=== PATIENT | male | born 1955 | race African-American/Black ===

== ENCOUNTER 2018-02-11 09:13 | Outpatient (CLI) | payer MEDICARE | END 2018-02-11 09:14 | disposition home or self-care (01) | LOC: BICULT 09:13 | PROVIDERS: ATTEND Internal Medicine Medical Oncology | DX: R16.1 Splenomegaly, not elsewhere classified (principal); D69.6 Thrombocytopenia, unspecified | CPT/HCPCS: 76700 ==

== ENCOUNTER 2018-10-23 10:32 | Inpatient (IN) | payer MEDICARE ==
[2018-10-23 13:36] VITALS: BMI 31.7
--- NOTE | 2018-10-23 13:57 | HP ---
PRIMARY CARE PHYSICIAN: Dr. Berg. REASON FOR ADMISSION: Transferred from [facility] for left-sided facial, body pain as well as left-sided eye redness. HISTORY OF PRESENT ILLNESS: A 63-year-old male, who has underlying history of diabetes, who went to [facility] earlier today with complaint of left-sided facial pain, left-sided headache as well as left-sided body pain. He describes pain in his left side of face, upper part around periorbital region, throbbing in nature, associated with blurred vision as well as conjunctivitis on the left side. He also had some nonspecific rash around the left periorbital region. He was also complaining of pain radiating to entire left side of body. He denies any motor weakness. He denies any sensory changes in upper or lower extremity, but he was having mainly pain. He denies any associated nausea, vomiting. Family member also noticed that he was having slurred speech and vision changes. The patient reports that with movement of the eye, he gets more pain. He denies any trauma. He denies any contact lens. He denies any purulent drainage from the eye. He denies any sick exposure. He denies any UTI symptoms. He denies any constipation, diarrhea, melena, or hematochezia. The patient had CT brain at [facility], which was unremarkable and he had his chest x-ray, which was unremarkable. Routine blood test showed uncontrolled diabetes. The patient was transferred to our hospital for further evaluation and treatment. REVIEW OF SYSTEMS: CONSTITUTIONAL: Negative for weight loss or gain, ability to conduct usual activities. SKIN: Negative for rash, itching. EYES: Negative for double vision, pain. ENT/MOUTH: Negative for nose bleeding, neck stiffness, pain, tenderness. CARDIOVASCULAR: Negative for palpitations, dyspnea on exertion, orthopnea. RESPIRATORY: Negative for shortness of breath, wheezing, cough, hemoptysis, fever or night sweats. GASTROINTESTINAL: Negative for poor appetite, abdominal pain, heartburn, nausea, vomiting, constipation, or diarrhea. GENITOURINARY: Negative for urgency, frequency, dysuria, nocturia. MUSCULOSKELETAL: Negative for pain, swelling. NEUROLOGIC/PSYCHIATRIC: Negative for anxiety, depression. ALLERGY/IMMUNOLOGIC: Negative for skin rash, bleeding tendency. Please see my HPI for pertinent positives and negatives. All other review of systems reviewed and negative except as mentioned in HPI. PAST MEDICAL HISTORY: Hypertension, dyslipidemia, insulin-dependent diabetes mellitus. PAST SURGICAL HISTORY: Reviewed and negative. PAST PSYCHIATRIC HISTORY: Reviewed and negative. SOCIAL HISTORY: The patient is , lives at home with family. No history of tobacco, alcohol, or illicit drug abuse. FAMILY HISTORY: Positive for diabetes among several family members. ALLERGIES: LATEX, BUT NO KNOWN DRUG ALLERGY. CURRENT HOME MEDICATION: 1. Levemir 45 units subcu twice daily. 2. NovoLog insulin 15 units three times daily. EMERGENCY ROOM COURSE: The patient was given aspirin, Reglan, Benadryl, and potassium chloride. PHYSICAL EXAMINATION: VITAL SIGNS: On arrival, blood pressure 158/86, pulse 78, respiratory rate 18, temperature 98.7, saturation 98% on room air. Weight 83.9 kg. GENERAL: The patient is currently alert, awake, follows commands. No obvious acute distress other than complaining of headache and hypertensive. HEENT: Eyes, left conjunctiva injected with left sclera injected. At corneoscleral junction, the patient has white appearing colonies. The patient has tenderness. ENT, oropharynx appears within normal limits. Moist mucous membranes. No oral lesion. No pharyngeal erythema. No exudate. NECK: Supple. No JVD. No thyromegaly. No carotid bruit. No jugular venous distention. LUNGS: Clear to auscultation without any rhonchi or rales. CARDIAC: S1, S2 regular. Soft systolic murmur present at parasternum. No gallop. No rub. ABDOMEN: Soft. Bowel sounds present. Obesity present. No peritoneal sign. No guarding. No rigidity. No rebound. BACK: Unremarkable. No CVA tenderness. EXTREMITIES: Upper extremities, passive movement of all joints are normal. Lower extremities, passive movement of all joints are normal. SKIN: No skin rash. HEMATOLOGICAL: No lymphadenopathy. NEUROLOGIC: Currently, the patient's speech is normal. Cranial nerve, otherwise unremarkable. Motor and sensation within normal limits. Plantar bilateral flexor. Reflexes symmetrical. SIGNIFICANT LABORATORY DATA: EKG showing LVH. CT head based on my review, no acute intracranial process. Chest x-ray based on my review, no acute cardiopulmonary process. CBC; WBC 6.3, hemoglobin 12.1, platelets 68. BMP; sodium 136, potassium 2.9, chloride 94, carbon dioxide 33, BUN 25, creatinine 1.73, glucose 349, calcium 9.5. LFT; AST 24, ALT 15, alkaline phosphatase 75, albumin 3.1, CK-MB 1.2, troponin 0.032. ASSESSMENT AND PLAN: Impression: 1. Right eye conjunctivitis with keratitis. Differential diagnosis is herpes keratitis, needs to be excluded. I will consult Ophthalmology to look at this patient's eye on the left side. He has sclera disease as well as corneal ulceration, which was suspected. After all Ophthalmology evaluation, we will consider specific treatment. The patient also has conjunctival suffusion, so leptospirosis needs to be excluded. I will consult Dr. Batres for his opinion. The patient also has periorbital edema as well as uncontrolled diabetes, so Mucorales is also suspected and that is why we will obtain opinion from Dr. Batres and after that we will start specific therapy if needed. I will obtain MRI brain with orbital and sinus protocol. 2. Hypokalemia. We will check magnesium, phosphorus, and the patient is given potassium chloride at other emergency room. We will give him another potassium chloride 40 mEq p.o. one time dose. 3. Elevated troponin. We will do serial cardiac enzyme x3 to rule out acute coronary syndrome. Likely this is due to type [address] elevation myocardial infarction. 4. Chronic kidney disease, likely due to diabetic nephropathy. The patient has associated hypoalbuminemia. We will check urinalysis. 5. Thrombocytopenia, unclear etiology. We will repeat CBC. 6. Diabetes type 2, uncontrolled. We will start insulin as per home dosage and cover with aggressive sliding scale insulin. Diabetic diet will be given. 7. DVT prophylaxis, SCD boots. No Lovenox because of low platelet count. 8. Gastrointestinal prophylaxis, Pepcid 20 mg p.o. b.i.d. CODE STATUS: The patient is full code. DISPOSITION PLAN: Based on clinical course, we are expecting the patient's stay in hospital more than 2 midnights. Plan of care discussed with the patient in detail. If needed, we will change to inpatient status as well. Job ID: [id number]
[2018-10-23] MEDS ORDERED: Sodium Chloride 0.65% Nasal 44 ML BOT EA NARE PRN (14:19)
[2018-10-23] MEDS ORDERED: Loperamide HCl 2 MG CAP PO PRN (14:19)
[2018-10-23] MEDS ORDERED: Artificial Tears 18 DROP/0.9 ML EA EYE PRN (14:19)
[2018-10-23] MEDS ORDERED: Dextrose 5% in Water 1,000 ML IV PRN (14:19)
[2018-10-23] MEDS ORDERED: Ondansetron ODT 4 MG TAB PO PRN (14:19)
[2018-10-23] MEDS ORDERED: Cepastat Lozenges 1 LOZ PO PRN (14:19)
[2018-10-23] MEDS ORDERED: Calcium Carbonate 500 MG ChewTAB PO PRN (14:19)
[2018-10-23] MEDS ORDERED: Dextrose 50% Abboject 50 ML SYRINGE SLOW IVP PRN (14:19)
[2018-10-23] MEDS ORDERED: Ondansetron PF 4 MG/2 ML Vial IVP PRN (14:19)
[2018-10-23] MEDS ORDERED: Bisacodyl 10 MG SUPP PR PRN (14:19)
[2018-10-23] MEDS ORDERED: Zolpidem Tartrate 5 MG TAB PO PRN (14:19)
[2018-10-23] MEDS ORDERED: Eucerin (Mineral Oil/Petrolatum,White) 30 gm Jar TOP PRN (14:19)
[2018-10-23] MEDS ORDERED: Diabetic Tussin 200 MG/10 ML UDCUP PO PRN (14:19)
[2018-10-23] MEDS ORDERED: Loratadine 10 MG TAB PO PRN (14:19)
[2018-10-23 14:27] LABS: Troponin I 0.017 ng/mL (< 0.028)
--- NOTE | 2018-10-23 15:52 | MRI ---
EXAM: MRI Brain W WO Con PROVIDED CLINICAL HISTORY: Left orbit pain and headache COMPARISON: None FINDINGS: The ventricular system appears normal in size and morphology. There is no evidence for intracranial h emorrhage or mass effect. There is no restricted diffusion to suggest recent infarction. There are multifocal patchy foci of FLAIR and T2 hyperintensity involving the cerebral white matter a nd reyna, statistically reflecting chronic microvascular ischemic change. There is nonmasslike T2 hyperintensity within the cerebral peduncles bilaterally, without corresponding contrast enhancement. No additional significant intracranial signal abnormality is evident. The orbits and visualized paranasal sinuses demonstrate a normal MR appearance. Appropriate flow void s are seen within the major intracranial vessels. Regional marrow signal appears normal. IMPRESSION: 1. No orbital or sinus abnormality to explain the patient's left eye pain. 2. Symmetric T2 hyperintensity within the cerebellar peduncles. Differential diagnosis is broad, and includes neurodegenerative processes, inflammatory processes such as PML and other cerebritis, myelinolyses cyst related to electrolyte dysfunction or nonspecific toxic exposures.
[2018-10-23] MEDS: HYDROcodone/Acetaminophen 5/325 mg Tablet PO PRN ×2 (16:05→20:17)
[2018-10-23] MEDS: HumaLOG 300 UNITS/3 ML VIAL SC PRN (17:03)
[2018-10-23] MEDS: hydrALAZINE 20 MG/ML VIAL SLOW IVP PRN (17:12)
[2018-10-23 17:24] LABS: Bilirubin Negative (Negative); Blood, Urine Moderate (Negative); Clarity CLEAR (Clear); Glucose, Urine (Dipstick) 250 mg/dL (Negative); Leukocyte Negative (Negative); Nitrite Negative (Negative); Protein, Urine (Dipstick) 100 mg/dL (Neg-Trace); Specific Gravity, Urine 1.018 (1.002-1.036); pH, Urine 6.5 (5.0-9.0)
[2018-10-23 17:26] LABS: Bacteria/HPF None Seen HPF (None Seen); Hyaline Casts/LPF 0-3 HYALINE CAST LPF (0-3 Hyaline); Pathc Cast-AUWi Flag 0.27 (0-2.49); Squamous Epithelial 0-3 HPF (0-3); WBC/HPF 0-3 HPF (0-3)
[2018-10-23 18:47] LABS: HIV (1/2) Antibody/Antigen Non-Reactive (NonReactive); HIV 1/2 INDEX 0.19 S/CO (<1.00)
[2018-10-23] MEDS: prednisoLONE 1% Ophth Susp 5 ml Bottle L EYE SCH (20:16)
[2018-10-23] MEDS: Famotidine 20 MG TAB PO SCH (20:17)
[2018-10-23] MEDS: Insulin Glargine 45 UNITS in Pre-Filled Syringe SC SCH (20:19)
[2018-10-23 21:48] LABS: Syphilis Antibody REACTIVE (Nonreactive)
--- NOTE | 2018-10-23 22:43 | CON ---
DATE OF CONSULTATION: 10/23/2018 REASON: Pain, headaches, and eye changes. HISTORY OF PRESENT ILLNESS: A 63-year-old, first admission to this hospital, who has a history of hypertension, type 2 diabetes, and has developed ocular pain with frontal temporal pain, left side; blurred vision; conjunctival hyperemia, left side. He had some pain in the left side of his body as well. There was some slurred speech. CT of brain was not remarkable. Chest x-ray was not remarkable and he was transferred and admitted. The patient has had a brain MRI here at [facility] and it showed no orbital abnormality. There was some T2 hyperintensity within the cerebellar peduncles. Currently, he is awake, still has pain in the left orbital region and along the left frontal temporal region. No nasal symptoms. No earache. No sore throat, odynophagia, or dysphagia. No dental pain. No back pain. No cough, sputum production, or dyspnea. No chest pain. No abdominal pain or diarrhea. No genitourinary symptoms. No joint symptoms. PAST MEDICAL HISTORY: Hypertension, type 2 diabetes, and hyperlipidemia. SOCIAL HISTORY: Never smoker. No alcoholic beverage use. No drug use. Retired, disabled really. ALLERGIES: NONE. FAMILY HISTORY: Noncontributory. CURRENT MEDS: 1. Tylenol. 2. [place]. 3. Aspirin. 4. Dulcolax. 5. Tums. 6. Dextrose. 7. Pepcid. 8. Glucagon. 9. Robitussin. 10. Apresoline. 11. Insulin. 12. Loperamide. 13. Loratadine. 14. Ondansetron. 15. Ambien. PHYSICAL EXAMINATION: VITAL SIGNS: T-max 98.1, BP 196/96, pulse 77, respirations 24, and O2 saturation 94%. SKIN: Exam was not remarkable. No lymphadenopathy. Ocular movements are conjugate. The left conjunctival area is hyperemic. There is white dotted areas along the margin of the cornea, left side between 12 and 3 o'clock. The pupils are equal. Intraocular media are patent. The ocular movements are intact. Nasal passages patent. Ear exam normal. Oral cavity moist with no lesions. Numerous teeth in place with the expected decay and gum disease. NECK: Supple. No jugular vein distention or carotid bruits. No thyromegaly. LUNGS: Symmetric, clear breath sounds. HEART: S1 and S2, regular rate. No S3 or S4. No murmurs. ABDOMEN: Soft, not distended or tender. No ascites. No bladder distention. No organomegaly. No genital abnormalities. MUSCULOSKELETAL: No joint inflammatory process. Pulses 1+ in dorsalis pedis. Plantar responses are flexor. Moves extremities equally. He is awake and oriented, follows commands. LABORATORY DATA: White cell count 6.3, hemoglobin 12, MCV 89, platelets 68,000, 60% neutrophils, and 29% lymphocytes. Potassium 2.9, creatinine 1.73, glucose 349, uric acid 8.8, bilirubin 0.9, and direct 0.6. Transaminases and alkaline phosphatase normal. LDH 394. Serum total protein 9.0, albumin 3.1. Total lymphocyte count 1.9. Urinalysis was not done. Toxicology is not updated. Immunology, the rheumatoid factor was positive, IgA, but IgM was negative, it was normal. ADELA was negative in 2018 and HCV RNA PCR which is not detected in 2019. Imaging studies have been discussed. He does have also an abdominal ultrasound from February last year with splenomegaly and diffuse coarse, liver echotexture. ASSESSMENT: 1. 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 It could be secondary to steatohepatitis. This probably has not yet been identified and the patient is not aware of it. 2. New onset of left eye symptoms with pain, conjunctiva, hyperemia. DISCUSSION: Differential diagnosis includes anterior or posterior uveitis or guerra uveitis as the more likely scenario. Glaucoma would be another concern and needs to be checked. Dr. Moralez has evaluated the patient at this moment. If he does have confirmed uveitis, then we will have to rule out infectious causes. In view of the lymphocytopenia, we will check HIV serology and syphilis serology as well to the panel. It does not look like he has bacterial endophthalmitis. Other infectious causes, then noninfectious causes of uveitis will have to be considered as well. I do not see any evidence of herpes zoster. There is no evidence of rhinosinusitis, so the possibility of mucormycosis is less likely. Job ID: [id number]
[2018-10-24] MEDS: HYDROcodone/Acetaminophen 5/325 mg Tablet PO PRN ×4 (00:13→20:17)
[2018-10-24] MEDS: prednisoLONE 1% Ophth Susp 5 ml Bottle L EYE SCH ×6 (00:15→21:01)
[2018-10-24] MEDS: Hydrocerin (Eucerin) Cream 120 gm Jar TOP PRN ×2 (00:32→21:02)
[2018-10-24 06:06] LABS: Hemoglobin A1c 8.8 % (4.0-6.0)
[2018-10-24 06:28] LABS: ALT (SGPT) 16 U/L (8-55); AST (SGOT) 33 U/L (5-34); Albumin 2.8 g/dL (3.4-4.8); Alkaline Phosphatase 71 U/L (40-150); Anion Gap 14 mmol/L (10-20); BUN (Urea Nitrogen) 20 mg/dL (8.4-25.7); Calc. Creatinine Clearance 71 mL/min (70-130); Calcium 9.3 mg/dL (7.8-10.44); Carbon Dioxide 29 mmol/L (23-31); Cardiac Risk 3.4 (Less than 4.5); Chloride 95 mmol/L (98-107); Cholesterol 144 mg/dl (< 200 Desired); Estimated GFR-MDRD 63; Globulin 5.6 g/dL (2.4-3.5); Glucose 249 mg/dL (80-115); HDL Cholesterol 42 mg/dL (>60 Neg Risk); LDL Cholesterol, Calculated 80 mg/dL; Potassium 3.3 mmol/L (3.5-5.1); Protein, Total 8.4 g/dL (5.8-8.1); Sodium 135 mmol/L (136-145); Triglycerides 110 mg/dL (Less than 150)
[2018-10-24] MEDS ORDERED: Potassium Chloride 20 MEQ TAB PO SCH (08:00)
[2018-10-24] MEDS: Famotidine 20 MG TAB PO SCH ×2 (08:14→20:17)
[2018-10-24] MEDS: Aspirin Chewable 81 MG TAB PO SCH (08:14)
--- NOTE | 2018-10-24 08:50 | PDOC.PN ---
- Subjective Encounter Start Date: 10/24/18 Encounter Start Time: 08:00 -: old records requested/rev Patient seen and examined. No new complaints. No overnight events - Objective Resuscitation Status - Order Detail: 10/23/18 12:04 Resuscitation Status Routine Resuscitation Status: FULL: Full Resuscitation MAR Reviewed: Yes Vital Signs & Weight: Vital Signs (12 hours) Temp Pulse Resp BP Pulse Ox 10/24/18 07:27 97.9 F 93 20 167/87 H 95 10/24/18 04:13 99.1 F 77 20 151/82 H 97 10/24/18 02:56 98 10/23/18 23:39 98.9 F 81 18 160/80 H 98 Weight Weight 208 lb 11.2 oz I&O: 10/23/18 10/24/18 10/25/18 06:59 06:59 06:59 Intake Total 700 Output Total 225 Balance 475 Result Diagrams: 10/24/18 04:42 Additional Labs: Accuchecks 10/23/18 10/23/18 20:17 16:51 POC Glucose 380 H 244 H EKG Reviewed by me: Yes Phys Exam - Physical Examination Constitutional: NAD HEENT: PERRLA, moist MMs, sclera anicteric Neck: no JVD, supple Respiratory: no wheezing, no rales, no rhonchi Cardiovascular: RRR, no significant murmur, no rub Gastrointestinal: soft, non-tender, no distention, positive bowel sounds Musculoskeletal: no edema, pulses present Neurological: non-focal, normal sensation Lymphatic: no nodes Psychiatric: normal affect Skin: no rash, normal turgor Dx/Plan (1) Headache Code(s): R51 - HEADACHE Status: Acute (2) Redness of left eye Code(s): H57.89 - OTHER SPECIFIED DISORDERS OF EYE AND ADNEXA Status: Acute (3) Syphilis Code(s): A53.9 - SYPHILIS, UNSPECIFIED Status: Acute (4) CKD (chronic kidney disease) stage 3, GFR 30-59 ml/min Code(s): N18.3 - CHRONIC KIDNEY DISEASE, STAGE 3 (MODERATE) Status: Chronic (5) Diabetes type 2, uncontrolled Code(s): E11.65 - TYPE 2 DIABETES MELLITUS WITH HYPERGLYCEMIA Status: Chronic (6) Hypertension Code(s): I10 - ESSENTIAL (PRIMARY) HYPERTENSION Status: Chronic (7) Obesity (BMI 30.0-34.9) Code(s): E66.9 - OBESITY, UNSPECIFIED Status: Chronic - Plan cont current plan of care * syphilis serology positive, will ask dr wyman to decide on treatment * pt will follow with opthalmology after discharge * medication reviewed as below * symptomatic treatment * possible discharge after dr wyman recommendation Review of Systems - Review of Systems ENT: negative: Ear Pain, Ear Discharge, Nose Pain, Nose Discharge, Nose Congestion, Mouth Pain, Mouth Swelling, Throat Pain, Throat Swelling, Other Respiratory: negative: Cough, Dry, Shortness of Breath, Hemoptysis, SOB with Excertion, Pleuritic Pain, Sputum, Wheezing Cardiovascular: negative: chest pain, palpitations, orthopnea, paroxysmal nocturnal dyspnea, edema, light headedness, other Gastrointestinal: negative: Nausea, Vomiting, Abdominal Pain, Diarrhea, Constipation, Melena, Hematochezia, Other Genitourinary: negative: Dysuria, Frequency, Incontinence, Hematuria, Retention , Other Musculoskeletal: negative: Neck Pain, Shoulder Pain, Arm Pain, Back Pain, Hand Pain, Leg Pain, Foot Pain, Other - Medications/Allergies Allergies/Adverse Reactions: Allergies Allergy/AdvReac Type Severity Reaction Status Date / Time No Known Allergies Allergy Verified 10/23/18 14:41 Medications: Current Medications Acetaminophen (Tylenol) 650 mg PO Q4H PRN PRN Reason: Headache/Fever/Mild Pain (1-3) Hydrocodone Bitart/Acetaminophen ([place] 5/325) 1 tab PO Q4H PRN PRN Reason: Moderate Pain (4-6) Last Admin: 10/24/18 08:14 Dose: 1 tab Artificial Tears (Tears Naturale) 2 drop EA EYE PRN PRN PRN Reason: Dry Eyes Aspirin (Aspirin Chewable) 81 mg PO DAILY PRASANNA Last Admin: 10/24/18 08:14 Dose: 81 mg Bisacodyl (Dulcolax) 10 mg SD DAILYPRN PRN PRN Reason: Constipation Calcium Carbonate (Tums) 1,000 mg PO Q4H PRN PRN Reason: Heartburn or Indigestion Dextrose/Water (Dextrose 50%) 25 gm SLOW IVP PRN PRN PRN Reason: Hypoglycemia Emollient Cream (Hydrocerin Cream) 0 gm TOP BIDPRN PRN PRN Reason: Dry Skin Last Admin: 10/24/18 00:32 Dose: 1 applic Famotidine (Pepcid) 20 mg PO BID [facility] Last Admin: 10/24/18 08:14 Dose: 20 mg Glucagon (Glucagon) 1 mg IM PRN PRN PRN Reason: Hypoglycemia Guaifenesin (Robitussin Sf) 200 mg PO Q4H PRN PRN Reason: Cough Hydralazine HCl (Apresoline) 10 mg SLOW IVP Q4H PRN PRN Reason: SBP > 180 and HR < 70 Last Admin: 10/23/18 17:12 Dose: 10 mg Dextrose/Water (D5w) 1,000 mls @ 0 mls/hr IV .Q0M PRN PRN Reason: Hypoglycemia Insulin Glargine 45 units/ (Miscellaneous Medication) 0.45 mls @ 0 mls/hr SC HS [facility] Last Admin: 10/23/18 20:19 Dose: 0.45 mls Insulin Glargine 45 units/ (Miscellaneous Medication) 0.45 mls @ 0 mls/hr SC QAM [facility] Insulin Human Lispro (Humalog) 0 units SC .AGGRESSIVE SLIDING PRN PRN Reason: Aggressive Correctional Scale Last Admin: 10/23/18 17:03 Dose: 6 unit Insulin Human Lispro (Humalog) 0 units SC .BEDTIME SLIDING SC PRN PRN Reason: Bedtime Correctional Scale Loperamide HCl (Imodium) 2 mg PO PRN PRN PRN Reason: Diarrhea/Loose Stools Loratadine (Claritin) 10 mg PO DAILYPRN PRN PRN Reason: Sinus Symptoms Non-Formulary Medication (Insulin Aspart [Novolog]) 15 units SC [facility] Non-Formulary Medication (Metoprolol/Hydrochlorothiazide [Metoprolol-Hctz 50-25 Mg Tab]) 1 tab PO BID [facility] Ondansetron HCl (Zofran Odt) 4 mg PO Q6H PRN PRN Reason: Nausea/Vomiting Ondansetron HCl (Zofran) 4 mg IVP Q6H PRN PRN Reason: Nausea/Vomiting Potassium Chloride (K-Dur) 40 meq PO 0800 [facility] Stop: 10/24/18 10:00 Prednisolone Acetate (Econopred Plus 1% Opth Susp) 1 drop L EYE Q4HR [facility] Last Admin: 04/14/19 08:13 Dose: 1 drop Senna/Docusate Sodium (Senokot S) 2 tab PO BID PRN PRN Reason: Constipation Simvastatin (Zocor) 20 mg PO HS PRASANNA Sodium Chloride ([place] Nasal [place] 0.65%) 0 ml EA NARE QIDPRN PRN PRN Reason: Nasal Congestion Throat Lozenges (Cepastat Lozenges) 1 nikki PO Q2H PRN PRN Reason: Sore Throat Zolpidem Tartrate (Ambien) 5 mg PO HSPRN PRN PRN Reason: Insomnia
[2018-10-24 08:57] LABS: #Basophils 0.1 thou/uL (0.0-0.2); #Eosinphils 0.1 thou/uL (0.0-0.7); #Lymphocytes 2.2 thou/uL (1.20-3.40); #Monocytes 0.5 thou/uL (0.11-0.59); #Neutrophils 3.5 thou/uL (1.40-6.50); %Basophils 0.8 % (0.0-1.0); %Eosinophils 1.4 % (0.0-10.0); %Monocytes 7.6 % (0.0-10.0); %Neutrophils 55.2 % (42.0-75.0); Hemoglobin 12.7 g/dL (14.0-18.0); MDiff Complete? YES; Mean Corpuscular HGB CONC 35.1 g/dL (32.0-36.0); Mean Corpuscular Hemoglobin 33.1 pg (27.0-31.0); Mean Corpuscular Volume 94.4 fL (78.0-98.0); Mean Platelet Volume 9.8 fL (7.4-10.4); Platelet Count 62 thou/uL (130-400); Platelet Morphology Comment Appears Decreased; RBC Distribution Width 11.5 % (11.5-14.5); Red Blood Cell (RBC) Count 3.84 mill/uL (4.70-6.10); White Blood Cell (WBC) Count 6.3 thou/uL (4.8-10.8)
[2018-10-24] MEDS: Senokot S 8.6-50 MG TAB PO PRN ×2 (09:49→21:02)
[2018-10-24] MEDS: Insulin Glargine 45 UNITS in Pre-Filled Syringe SC SCH ×2 (09:49→20:17)
--- NOTE | 2018-10-24 10:00 | DIS ---
DATE OF ADMISSION: 10/23/2018 DATE OF DISCHARGE: 10/24/2018 PRIMARY CARE PHYSICIAN: Dr. Morena Hewitt. DISCHARGE DISPOSITION: Home. PRIMARY DISCHARGE DIAGNOSIS: Redness of left eye, suspecting from uveitis secondary to syphilis. SECONDARY DISCHARGE DIAGNOSES: 1. Obesity with BMI 31. 2. Hypertension. 3. Diabetes type 2. 4. Chronic kidney disease, stage 3. PRIMARY PROCEDURE/OPERATION: None. RADIOLOGICAL INVESTIGATION: MRI brain was negative for any acute process. SIGNIFICANT LABORATORY DATA: Sodium 135, potassium 3.3, creatinine 1.38. Hemoglobin A1c 8.8. AST 33, ALT 16, alkaline phosphatase 71, albumin 2.8, ferritin 812, LDL 80. RPR titer 1:4. Syphilis IgG and IgM antibody reactive. HIV negative. Urinalysis unremarkable. DISCHARGE MEDICATIONS: 1. NovoLog insulin 15 units subcu a.c. 2. Levemir 45 units subcu b.i.d. 3. Metoprolol with hydrochlorothiazide 50/25 one tablet p.o. b.i.d. 4. Zocor 20 mg p.o. q.h.s. 5. Prednisolone drops q.4 hourly. The patient will get syphilis treatment through Dr. Batres office. CONTRAINDICATION: None. CODE STATUS: Full code. INPATIENT PUBLIC HEALTH: Dr. Batres was consulted while in hospital. Dr. Hayden Vazquez, door hanger, was consulted while in hospital. TEST RESULT PENDING ON DISCHARGE: None. ALLERGIES: NO KNOWN DRUG ALLERGIES. DISCHARGE PLAN: Posthospital, the patient is instructed to follow up with Dr. Batres and Dr. Hayden Vazquez. HOSPITAL COURSE: A 63-year-old male, who was admitted by me yesterday. Please see my HPI for further details. The patient was having headache and body ache. He was also having left eye pain and left eye redness. We suspected keratitis, and that is why we consulted Dr. Batres and Dr. Hayden Vazquez for evaluation, and they were suspecting uveitis. The patient also has positive syphilis serology and that is why we are deferring to Dr. Batres for management. If the patient does not need any further investigation, then the patient will follow up with Dr. Batres for syphilis treatment as an outpatient basis as well as Dr. Hayden Vazquez for his monitoring his eye. The patient will continue all his previous medications. The patient is seen and examined at bedside today. Please see my progress note from today for further detail. Job ID: [id number]
[2018-10-24] MEDS ORDERED: Metoprolol Tartrate 50 MG TAB PO SCH (10:45)
[2018-10-24] MEDS ORDERED: Hydrochlorothiazide 25 MG TAB PO SCH (10:45)
[2018-10-24] MEDS: HumaLOG 300 UNITS/3 ML VIAL SC SCH ×3 (10:57→17:14)
--- NOTE | 2018-10-24 15:50 | PRG ---
DATE OF SERVICE: 10/24/2018 SUBJECTIVE: About the same with pain in the left orbit and had no dyspnea or abdominal pain. No diarrhea. OBJECTIVE: VITAL SIGNS: T-max 99.1, blood pressure 160/86. HEENT: Conjunctival hyperemia noted. Pupils are equal. NEUROLOGICAL: Is able to count fingers on the left side. LUNGS: Clear. CARDIOVASCULAR: S1, S2, regular rate. ABDOMEN: Soft. Not distended. EXTREMITIES: Moves extremities equally. LABORATORY DATA: White cell count 6.3. Syphilis IgG/IgM positive and RPR titer 1:4. HIV nonreactive. ASSESSMENT AND PLAN: Type 2 diabetes, likely liver cirrhosis and portal hypertension, hypersplenism, mid left eye redness, probable uveitis with positive syphilis test without history of prior treatment. The patient needs a spinal tap to rule out neurosyphilis and then decide what the treatment will be. We will order a fluoroscopy-guided spinal tap for tomorrow. Job ID: [id number]
[2018-10-24] MEDS: Hydrochlorothiazide 25 MG TAB PO SCH (20:17)
[2018-10-24] MEDS: Metoprolol Tartrate 50 MG TAB PO SCH (20:17)
[2018-10-24] MEDS: Atorvastatin Calcium 10 MG TAB PO SCH (20:17)
[2018-10-25] MEDS: hydrALAZINE 20 MG/ML VIAL SLOW IVP PRN
[2018-10-25] MEDS: prednisoLONE 1% Ophth Susp 5 ml Bottle L EYE SCH ×6 (00:58→20:44)
[2018-10-25] MEDS: Famotidine 20 MG TAB PO SCH ×2 (08:37→20:43)
[2018-10-25] MEDS: HYDROcodone/Acetaminophen 5/325 mg Tablet PO PRN ×3 (08:37→20:52)
[2018-10-25] MEDS: Metoprolol Tartrate 50 MG TAB PO SCH ×2 (08:37→20:43)
[2018-10-25] MEDS: Hydrochlorothiazide 25 MG TAB PO SCH ×2 (08:37→20:43)
[2018-10-25] MEDS: Aspirin Chewable 81 MG TAB PO SCH (08:37)
[2018-10-25] MEDS: Insulin Glargine 45 UNITS in Pre-Filled Syringe SC SCH ×2 (08:40→20:43)
[2018-10-25] MEDS: Senokot S 8.6-50 MG TAB PO PRN (08:40)
--- NOTE | 2018-10-25 10:32 | RAD ---
Lumbar puncture fluoroscopic guided HISTORY: Altered mental status. FINDINGS: After spinal procedure and answering all questions, and the lower back was prepped and drap ed in usual sterile fashion. Sterile technique, local anesthesia and fluoroscopic guidance, and a right posterolateral L2-3 approach were used carefully advanced the tip of a 20-gauge spinal needle i nto the thecal sac. Opening pressure was not elevated. A total volume of 10 cc clear CSF was collected in 4 sterile tubes and submitted to laboratory for an alysis. Needle was removed. Patient tolerated the procedure well and returned in unchanged condition. IMPRESSION: Technically successful fluoroscopic guided lumbar puncture. Laboratory analysis pending.
[2018-10-25 10:36] LABS: Color Of CSF Supernatant COLORLESS (Colorless); Tube # 1; Unspun CSF Color COLORLESS (Colorless)
[2018-10-25 10:47] LABS: CSF, Glucose 87 mg/dl (40-70); CSF, Protein 134 mg/dL (15-40)
[2018-10-25] MEDS: HumaLOG 300 UNITS/3 ML VIAL SC PRN ×3 (10:48→20:44)
[2018-10-25] MEDS: Hydrocerin (Eucerin) Cream 120 gm Jar TOP PRN (10:52)
[2018-10-25 11:15] LABS: CSF Source CSF; Clarity Clear (Clear); RBC Count - Manual 89 /cumm (None Seen); Tube # 4; WBC/NonHematics Count - Manual 4 /cumm (0-5)
--- NOTE | 2018-10-25 11:55 | PDOC.PN ---
- Subjective Encounter Start Date: 10/25/18 Encounter Start Time: 07:00 Patient seen and examined. No new complaints. No overnight events - Objective Resuscitation Status - Order Detail: 10/23/18 12:04 Resuscitation Status Routine Resuscitation Status: FULL: Full Resuscitation MAR Reviewed: Yes Vital Signs & Weight: Vital Signs (12 hours) Temp Pulse Resp BP BP Pulse Ox 10/25/18 11:35 99.3 F 80 16 163/90 H 95 10/25/18 07:28 98.4 F 72 15 142/75 H 99 10/25/18 03:03 98.7 F 79 18 146/70 H 98 10/25/18 01:00 79 154/74 H 10/25/18 00:00 73 10/24/18 23:56 70 181/85 H Weight Weight 198 lb I&O: 10/24/18 10/25/18 10/26/18 06:59 06:59 06:59 Intake Total 700 620 300 Output Total 225 Balance 475 620 300 Result Diagrams: 10/24/18 04:42 10/24/18 04:42 Additional Labs: Accuchecks 10/25/18 10/25/18 10/25/18 10:30 04:57 00:59 POC Glucose 355 H 235 H 256 H 10/24/18 10/24/18 10/24/18 20:14 16:45 12:30 POC Glucose 218 H 98 338 H EKG Reviewed by me: Yes Phys Exam - Physical Examination Constitutional: NAD HEENT: PERRLA, moist MMs, sclera anicteric Neck: no JVD, supple Respiratory: no wheezing, no rales, no rhonchi Cardiovascular: RRR, no significant murmur, no rub Gastrointestinal: soft, non-tender, no distention, positive bowel sounds Musculoskeletal: no edema, pulses present Neurological: non-focal, normal sensation Lymphatic: no nodes Psychiatric: normal affect, A&O x 3 Skin: no rash, normal turgor Dx/Plan (1) Headache Code(s): R51 - HEADACHE Status: Acute (2) Redness of left eye Code(s): H57.89 - OTHER SPECIFIED DISORDERS OF EYE AND ADNEXA Status: Acute (3) Syphilis Code(s): A53.9 - SYPHILIS, UNSPECIFIED Status: Acute (4) CKD (chronic kidney disease) stage 3, GFR 30-59 ml/min Code(s): N18.3 - CHRONIC KIDNEY DISEASE, STAGE 3 (MODERATE) Status: Chronic (5) Diabetes type 2, uncontrolled Code(s): E11.65 - TYPE 2 DIABETES MELLITUS WITH HYPERGLYCEMIA Status: Chronic (6) Hypertension Code(s): I10 - ESSENTIAL (PRIMARY) HYPERTENSION Status: Chronic (7) Obesity (BMI 30.0-34.9) Code(s): E66.9 - OBESITY, UNSPECIFIED Status: Chronic - Plan cont current plan of care * today LP * if neurosyphilis, he will need PCN treatment for 14 days and will change to inpt * if no neurosyphilis, then weekly PCN for 3 dose * medication reviewed as below * symptomatic treatment. Review of Systems - Review of Systems ENT: negative: Ear Pain, Ear Discharge, Nose Pain, Nose Discharge, Nose Congestion, Mouth Pain, Mouth Swelling, Throat Pain, Throat Swelling, Other Respiratory: negative: Cough, Dry, Shortness of Breath, Hemoptysis, SOB with Excertion, Pleuritic Pain, Sputum, Wheezing Cardiovascular: negative: chest pain, palpitations, orthopnea, paroxysmal nocturnal dyspnea, edema, light headedness, other Gastrointestinal: negative: Nausea, Vomiting, Abdominal Pain, Diarrhea, Constipation, Melena, Hematochezia, Other Genitourinary: negative: Dysuria, Frequency, Incontinence, Hematuria, Retention , Other Musculoskeletal: negative: Neck Pain, Shoulder Pain, Arm Pain, Back Pain, Hand Pain, Leg Pain, Foot Pain, Other Skin: negative: Rash, Lesions, Boby, Bruising, Other - Medications/Allergies Allergies/Adverse Reactions: Allergies Allergy/AdvReac Type Severity Reaction Status Date / Time No Known Allergies Allergy Verified 10/23/18 14:41 Medications: Current Medications Acetaminophen (Tylenol) 650 mg PO Q4H PRN PRN Reason: Headache/Fever/Mild Pain (1-3) Hydrocodone Bitart/Acetaminophen ([place] 5/325) 1 tab PO Q4H PRN PRN Reason: Moderate Pain (4-6) Last Admin: 10/25/18 08:37 Dose: 1 tab Artificial Tears (Tears Naturale) 2 drop EA EYE PRN PRN PRN Reason: Dry Eyes Aspirin (Aspirin Chewable) 81 mg PO DAILY [facility] Last Admin: 10/25/18 08:37 Dose: 81 mg Atorvastatin Calcium (Lipitor) 10 mg PO [facility] Last Admin: 10/24/18 20:17 Dose: 10 mg Bisacodyl (Dulcolax) 10 mg [place] DAILYPRN PRN PRN Reason: Constipation Calcium Carbonate (Tums) 1,000 mg PO Q4H PRN PRN Reason: Heartburn or Indigestion Dextrose/Water (Dextrose 50%) 25 gm SLOW IVP PRN PRN PRN Reason: Hypoglycemia Emollient Cream (Hydrocerin Cream) 0 gm TOP BIDPRN PRN PRN Reason: Dry Skin Last Admin: 10/25/18 10:52 Dose: 1 applic Famotidine (Pepcid) 20 mg PO BID [facility] Last Admin: 10/25/18 08:37 Dose: 20 mg Glucagon (Glucagon) 1 mg IM PRN PRN PRN Reason: Hypoglycemia Guaifenesin (Robitussin Sf) 200 mg PO Q4H PRN PRN Reason: Cough Hydralazine HCl (Apresoline) 10 mg SLOW IVP Q4H PRN PRN Reason: SBP > 180 and HR < 70 Last Admin: 10/25/18 00:00 Dose: 10 mg Hydrochlorothiazide (Hydrochlorothiazide) 25 mg PO BID [facility] Last Admin: 10/25/18 08:37 Dose: 25 mg Dextrose/Water (D5w) 1,000 mls @ 0 mls/hr IV .Q0M PRN PRN Reason: Hypoglycemia Insulin Glargine 45 units/ (Miscellaneous Medication) 0.45 mls @ 0 mls/hr SC [facility] Last Admin: 10/24/18 20:17 Dose: 0.45 mls Insulin Glargine 45 units/ (Miscellaneous Medication) 0.45 mls @ 0 mls/hr [facility] Last Admin: 10/25/18 08:40 Dose: 0.45 mls Insulin Human Lispro (Humalog) 0 units [place] .AGGRESSIVE SLIDING PRN PRN Reason: Aggressive Correctional Scale Last Admin: 10/25/18 10:48 Dose: 13 unit Insulin Human Lispro (Humalog) 0 units SC .BEDTIME SLIDING SC PRN PRN Reason: Bedtime Correctional Scale Loperamide HCl (Imodium) 2 mg PO PRN PRN PRN Reason: Diarrhea/Loose Stools Loratadine (Claritin) 10 mg PO DAILYPRN PRN PRN Reason: Sinus Symptoms Metoprolol Tartrate (Lopressor) 50 mg PO BID [facility] Last Admin: 10/25/18 08:37 Dose: 50 mg Ondansetron HCl (Zofran Odt) 4 mg PO Q6H PRN PRN Reason: Nausea/Vomiting Ondansetron HCl (Zofran) 4 mg IVP Q6H PRN PRN Reason: Nausea/Vomiting Prednisolone Acetate (Econopred Plus 1% Opth Susp) 1 drop L EYE Q4HR [facility] Last Admin: 10/25/18 08:36 Dose: 1 drop Senna/Docusate Sodium (Senokot S) 2 tab PO BID PRN PRN Reason: Constipation Last Admin: 10/25/18 08:40 Dose: 2 tab Sodium Chloride ([place] Nasal [place] 0.65%) 0 ml EA NARE QIDPRN PRN PRN Reason: Nasal Congestion Throat Lozenges (Cepastat Lozenges) 1 nikki PO Q2H PRN PRN Reason: Sore Throat Zolpidem Tartrate (Ambien) 5 mg PO HSPRN PRN PRN Reason: Insomnia
--- NOTE | 2018-10-25 16:25 | PRG ---
DATE OF SERVICE: 10/25/2018 SUBJECTIVE: Feeling better, less eye pain. No respiratory symptoms or abdominal pain. He reports that he had treatment for syphilis in the past a few years ago with injections given in the muscle. OBJECTIVE: VITAL SIGNS: T-max 99.3. HEENT: The left ocular structures appear with less hyperemia of the conjunctivae. Pupils are equal. Oral cavity moist. LUNGS: Symmetric. Clear breath sounds. HEART: S1 and S2, regular rate. No S3 or S4. ABDOMEN: Soft. Not distended. LABORATORY DATA: White cell count is 6.3. The CSF with 4 wbc's and protein was 134. VDRL in the CSF is pending. The RPR was positive 1 to 4. ASSESSMENT AND DISCUSSION: Type 2 diabetes, cirrhosis, portal hypertension, left eye ocular inflammation. Dr. Vazquez has diagnosed his keratitis. He has been given corticosteroids. In view of the positive syphilis test and the abnormal CSF, I will advise treatment with IV penicillin. Could be transitioned to IM procaine penicillin plus oral probenecid. To allow discharge planning, the usual dose is 2.4 million units IM q.24 hours plus probenecid 500 mg p.o. four times daily for 14 days. His penicillin G IV is chosen, then 4 million units IV q.4 hours for 14 days would be the preferred regimen. Job ID: [id number]
[2018-10-25] MEDS: Penicillin G Potassium 4 MILL.UNITS in Sodium Chloride 0.9% 100 ML IVPB SCH ×2 (17:25→20:49)
[2018-10-25] MEDS: Atorvastatin Calcium 10 MG TAB PO SCH (20:43)
[2018-10-26] MEDS: Penicillin G Potassium 4 MILL.UNITS in Sodium Chloride 0.9% 100 ML IVPB SCH ×6 (00:56→20:26)
[2018-10-26] MEDS: prednisoLONE 1% Ophth Susp 5 ml Bottle L EYE SCH ×6 (00:57→20:34)
[2018-10-26] MEDS: HYDROcodone/Acetaminophen 5/325 mg Tablet PO PRN ×3 (00:59→18:12)
[2018-10-26] MEDS: Insulin Glargine 45 UNITS in Pre-Filled Syringe SC SCH ×2 (09:41→20:36)
[2018-10-26] MEDS: Hydrochlorothiazide 25 MG TAB PO SCH ×2 (09:42→20:28)
[2018-10-26] MEDS: Famotidine 20 MG TAB PO SCH ×2 (09:42→20:27)
[2018-10-26] MEDS: Aspirin Chewable 81 MG TAB PO SCH (09:42)
[2018-10-26] MEDS: Metoprolol Tartrate 50 MG TAB PO SCH ×2 (09:42→20:28)
--- NOTE | 2018-10-26 10:40 | PDOC.PN ---
- Subjective Encounter Start Date: 10/26/18 Encounter Start Time: 09:50 Patient seen and examined. No new complaints. No overnight events - Objective Resuscitation Status - Order Detail: 10/23/18 12:04 Resuscitation Status Routine Resuscitation Status: FULL: Full Resuscitation MAR Reviewed: Yes Vital Signs & Weight: Vital Signs (12 hours) Temp Pulse Resp BP BP BP Pulse Ox 10/26/18 07:49 98.0 F 64 19 164/84 H 96 10/26/18 05:04 98.4 F 70 20 150/83 H 97 10/26/18 00:55 68 144/67 H Weight Weight 198 lb I&O: 10/25/18 10/26/18 10/27/18 06:59 06:59 06:59 Intake Total 620 1600 Balance 620 1600 Result Diagrams: 10/24/18 04:42 10/24/18 04:42 Additional Labs: Accuchecks 10/26/18 10/25/18 10/25/18 05:04 20:43 16:51 POC Glucose 145 H 307 H 160 H 10/25/18 10:30 POC Glucose 355 H Phys Exam - Physical Examination Constitutional: NAD HEENT: PERRLA, moist MMs, sclera anicteric Neck: no JVD, supple Respiratory: no wheezing, no rales, no rhonchi Cardiovascular: RRR, no significant murmur, no rub Gastrointestinal: soft, non-tender, no distention, positive bowel sounds Musculoskeletal: no edema, pulses present Neurological: non-focal, normal sensation, moves all 4 limbs Lymphatic: no nodes Psychiatric: normal affect, A&O x 3 Skin: no rash, normal turgor Dx/Plan (1) CKD (chronic kidney disease) stage 3, GFR 30-59 ml/min Code(s): N18.3 - CHRONIC KIDNEY DISEASE, STAGE 3 (MODERATE) Status: Chronic (2) Diabetes type 2, uncontrolled Code(s): E11.65 - TYPE 2 DIABETES MELLITUS WITH HYPERGLYCEMIA Status: Chronic (3) Hypertension Code(s): I10 - ESSENTIAL (PRIMARY) HYPERTENSION Status: Chronic (4) Obesity (BMI 30.0-34.9) Code(s): E66.9 - OBESITY, UNSPECIFIED Status: Chronic (5) Neurosyphilis Code(s): A52.3 - NEUROSYPHILIS, UNSPECIFIED Status: Acute (6) Keratitis Code(s): H16.9 - UNSPECIFIED KERATITIS Status: Acute - Plan cont current plan of care, continue antibiotics, community mental health social worker * pt will need IV PCN for 2 week and for that reason he will need family preservation caseworker for discharge planning * medication reviewed as below * symptomatic treatment. Review of Systems - Review of Systems ENT: negative: Ear Pain, Ear Discharge, Nose Pain, Nose Discharge, Nose Congestion, Mouth Pain, Mouth Swelling, Throat Pain, Throat Swelling, Other Respiratory: negative: Cough, Dry, Shortness of Breath, Hemoptysis, SOB with Excertion, Pleuritic Pain, Sputum, Wheezing Cardiovascular: negative: chest pain, palpitations, orthopnea, paroxysmal nocturnal dyspnea, edema, light headedness, other Gastrointestinal: negative: Nausea, Vomiting, Abdominal Pain, Diarrhea, Constipation, Melena, Hematochezia, Other Genitourinary: negative: Dysuria, Frequency, Incontinence, Hematuria, Retention , Other Musculoskeletal: negative: Neck Pain, Shoulder Pain, Arm Pain, Back Pain, Hand Pain, Leg Pain, Foot Pain, Other - Medications/Allergies Allergies/Adverse Reactions: Allergies Allergy/AdvReac Type Severity Reaction Status Date / Time No Known Allergies Allergy Verified 10/23/18 14:41 Medications: Current Medications Acetaminophen (Tylenol) 650 mg PO Q4H PRN PRN Reason: Headache/Fever/Mild Pain (1-3) Hydrocodone Bitart/Acetaminophen ([place] 5/325) 1 tab PO Q4H PRN PRN Reason: Moderate Pain (4-6) Last Admin: 10/26/18 09:58 Dose: 1 tab Artificial Tears (Tears Naturale) 2 drop EA EYE PRN PRN PRN Reason: Dry Eyes Aspirin (Aspirin Chewable) 81 mg PO DAILY [facility] Last Admin: 10/26/18 09:42 Dose: 81 mg Atorvastatin Calcium (Lipitor) 10 mg PO HS [facility] Last Admin: 10/25/18 20:43 Dose: 10 mg Bisacodyl (Dulcolax) 10 mg [place] DAILYPRN PRN PRN Reason: Constipation Calcium Carbonate (Tums) 1,000 mg PO Q4H PRN PRN Reason: Heartburn or Indigestion Dextrose/Water (Dextrose 50%) 25 gm SLOW IVP PRN PRN PRN Reason: Hypoglycemia Emollient Cream (Hydrocerin Cream) 0 gm TOP BIDPRN PRN PRN Reason: Dry Skin Last Admin: 10/25/18 10:52 Dose: 1 applic Famotidine (Pepcid) 20 mg PO BID [facility] Last Admin: 10/26/18 09:42 Dose: 20 mg Glucagon (Glucagon) 1 mg IM PRN PRN PRN Reason: Hypoglycemia Guaifenesin (Robitussin Sf) 200 mg PO Q4H PRN PRN Reason: Cough Hydralazine HCl (Apresoline) 10 mg SLOW IVP Q4H PRN PRN Reason: SBP > 180 and HR < 70 Last Admin: 10/25/18 00:00 Dose: 10 mg Hydrochlorothiazide (Hydrochlorothiazide) 25 mg PO BID [facility] Last Admin: 10/26/18 09:42 Dose: 25 mg Dextrose/Water (D5w) 1,000 mls @ 0 mls/hr IV .Q0M PRN PRN Reason: Hypoglycemia Insulin Glargine 45 units/ (Miscellaneous Medication) 0.45 mls @ 0 mls/hr SC HS [facility] Last Admin: 10/25/18 20:43 Dose: 0.45 mls Insulin Glargine 45 units/ (Miscellaneous Medication) 0.45 mls @ 0 mls/hr SC QAM [facility] Last Admin: 10/26/18 09:41 Dose: 0.45 mls Penicillin G Potassium 4 mill. (units/ Sodium Chloride) 100 mls @ 200 mls/hr IVPB Q4HR [facility] Last Admin: 10/26/18 09:41 Dose: 100 mls Insulin Human Lispro (Humalog) 0 units SC .AGGRESSIVE SLIDING PRN PRN Reason: Aggressive Correctional Scale Last Admin: 10/25/18 17:07 Dose: 3 unit Insulin Human Lispro (Humalog) 0 units SC .BEDTIME SLIDING SC PRN PRN Reason: Bedtime Correctional Scale Last Admin: 10/25/18 20:44 Dose: 3 unit Loperamide HCl (Imodium) 2 mg PO PRN PRN PRN Reason: Diarrhea/Loose Stools Loratadine (Claritin) 10 mg PO DAILYPRN PRN PRN Reason: Sinus Symptoms Metoprolol Tartrate (Lopressor) 50 mg PO BID [facility] Last Admin: 10/26/18 09:42 Dose: 50 mg Ondansetron HCl (Zofran Odt) 4 mg PO Q6H PRN PRN Reason: Nausea/Vomiting Ondansetron HCl (Zofran) 4 mg IVP Q6H PRN PRN Reason: Nausea/Vomiting Prednisolone Acetate (Econopred Plus 1% Opth Susp) 1 drop L EYE Q4HR [facility] Last Admin: 10/26/18 09:43 Dose: 1 drop Senna/Docusate Sodium (Senokot S) 2 tab PO BID PRN PRN Reason: Constipation Last Admin: 10/25/18 08:40 Dose: 2 tab Sodium Chloride ([place] Nasal [place] 0.65%) 0 ml EA NARE QIDPRN PRN PRN Reason: Nasal Congestion Throat Lozenges (Cepastat Lozenges) 1 nikki PO Q2H PRN PRN Reason: Sore Throat Zolpidem Tartrate (Ambien) 5 mg PO HSPRN PRN PRN Reason: Insomnia
[2018-10-26] MEDS: HumaLOG 300 UNITS/3 ML VIAL SC PRN (13:27)
[2018-10-26 14:22] LABS: A/G Ratio 0.6 (0.7-1.7); Albumin 2.9 g/dL (2.9-4.4); Alpha 1 0.3 g/dL (0.0-0.4); Alpha 2 0.7 g/dL (0.4-1.0); Beta 1.2 g/dL (0.7-1.3); Gamma 2.9 g/dL (0.4-1.8); Globulin, Total 5.2 g/dL (2.2-3.9); M-Spike Not Observed g/dL (Not Observed); Protein Electrophoresis Intrp Note: (.)
[2018-10-26] MEDS: Atorvastatin Calcium 10 MG TAB PO SCH (20:28)
[2018-10-26] MEDS: Acetaminophen 325 MG TAB PO PRN (20:46)
[2018-10-26] MEDS: Senokot S 8.6-50 MG TAB PO PRN (20:49)
[2018-10-27] MEDS: Penicillin G Potassium 4 MILL.UNITS in Sodium Chloride 0.9% 100 ML IVPB SCH ×6 (00:34→20:00)
[2018-10-27] MEDS: prednisoLONE 1% Ophth Susp 5 ml Bottle L EYE SCH ×6 (00:35→20:01)
[2018-10-27] MEDS: HYDROcodone/Acetaminophen 5/325 mg Tablet PO PRN ×2 (05:37→17:11)
[2018-10-27] MEDS: Insulin Glargine 45 UNITS in Pre-Filled Syringe SC SCH ×2 (09:21→20:02)
[2018-10-27] MEDS: Famotidine 20 MG TAB PO SCH ×2 (09:23→20:02)
[2018-10-27] MEDS: Aspirin Chewable 81 MG TAB PO SCH (09:23)
[2018-10-27] MEDS: Hydrochlorothiazide 25 MG TAB PO SCH ×2 (09:23→20:02)
[2018-10-27] MEDS: Metoprolol Tartrate 50 MG TAB PO SCH ×2 (09:24→20:02)
[2018-10-27] MEDS: HumaLOG 300 UNITS/3 ML VIAL SC PRN ×2 (11:43→20:02)
--- NOTE | 2018-10-27 11:45 | PDOC.PN ---
- Subjective Encounter Start Date: 10/27/18 Encounter Start Time: 08:45 Patient seen and examined. No new complaints. No overnight events - Objective Resuscitation Status - Order Detail: 10/23/18 12:04 Resuscitation Status Routine Resuscitation Status: FULL: Full Resuscitation MAR Reviewed: Yes Vital Signs & Weight: Vital Signs (12 hours) Temp Pulse Resp BP BP Pulse Ox 10/27/18 07:47 97.9 F 71 18 153/80 H 94 L 10/27/18 05:24 98.3 F 73 16 150/87 H 96 10/27/18 00:06 98.6 F 73 16 145/78 H 96 Weight Weight 198 lb I&O: 10/26/18 10/27/18 10/28/18 06:59 06:59 06:59 Intake Total 1600 1100 Balance 1600 1100 Result Diagrams: 10/24/18 04:42 10/24/18 04:42 Additional Labs: Accuchecks 10/27/18 10/27/18 10/26/18 11:24 05:25 19:56 POC Glucose 224 H 84 182 H 10/26/18 10/26/18 16:25 11:36 POC Glucose 137 H 212 H Phys Exam - Physical Examination Constitutional: NAD HEENT: PERRLA, moist MMs, sclera anicteric Neck: no JVD, supple Respiratory: no wheezing, no rales, no rhonchi Cardiovascular: RRR, no significant murmur, no rub Gastrointestinal: soft, non-tender, no distention, positive bowel sounds Musculoskeletal: no edema, pulses present Neurological: non-focal, normal sensation Lymphatic: no nodes Psychiatric: normal affect Skin: no rash, normal turgor Dx/Plan (1) CKD (chronic kidney disease) stage 3, GFR 30-59 ml/min Code(s): N18.3 - CHRONIC KIDNEY DISEASE, STAGE 3 (MODERATE) Status: Chronic (2) Diabetes type 2, uncontrolled Code(s): E11.65 - TYPE 2 DIABETES MELLITUS WITH HYPERGLYCEMIA Status: Chronic (3) Hypertension Code(s): I10 - ESSENTIAL (PRIMARY) HYPERTENSION Status: Chronic (4) Obesity (BMI 30.0-34.9) Code(s): E66.9 - OBESITY, UNSPECIFIED Status: Chronic - Plan cont current plan of care, continue antibiotics * will need total 2 week IV PCN * will get PICC line * tomorrow will discharge to swing bed * medication reviewed as below * symptomatic treatment. Review of Systems - Review of Systems ENT: negative: Ear Pain, Ear Discharge, Nose Pain, Nose Discharge, Nose Congestion, Mouth Pain, Mouth Swelling, Throat Pain, Throat Swelling, Other Respiratory: negative: Cough, Dry, Shortness of Breath, Hemoptysis, SOB with Excertion, Pleuritic Pain, Sputum, Wheezing Cardiovascular: negative: chest pain, palpitations, orthopnea, paroxysmal nocturnal dyspnea, edema, light headedness, other Gastrointestinal: negative: Nausea, Vomiting, Abdominal Pain, Diarrhea, Constipation, Melena, Hematochezia, Other Genitourinary: negative: Dysuria, Frequency, Incontinence, Hematuria, Retention , Other Musculoskeletal: negative: Neck Pain, Shoulder Pain, Arm Pain, Back Pain, Hand Pain, Leg Pain, Foot Pain, Other - Medications/Allergies Allergies/Adverse Reactions: Allergies Allergy/AdvReac Type Severity Reaction Status Date / Time No Known Allergies Allergy Verified 10/23/18 14:41 Medications: Current Medications Acetaminophen (Tylenol) 650 mg PO Q4H PRN PRN Reason: Headache/Fever/Mild Pain (1-3) Last Admin: 10/26/18 20:46 Dose: 650 mg Hydrocodone Bitart/Acetaminophen ([place] 5/325) 1 tab PO Q4H PRN PRN Reason: Moderate Pain (4-6) Last Admin: 10/27/18 05:37 Dose: 1 tab Artificial Tears (Tears Naturale) 2 drop EA EYE PRN PRN PRN Reason: Dry Eyes Aspirin (Aspirin Chewable) 81 mg PO DAILY [facility] Last Admin: 10/27/18 09:23 Dose: 81 mg Atorvastatin Calcium (Lipitor) 10 mg PO HS [facility] Last Admin: 10/26/18 20:28 Dose: 10 mg Bisacodyl (Dulcolax) 10 mg [place] DAILYPRN PRN PRN Reason: Constipation Calcium Carbonate (Tums) 1,000 mg PO Q4H PRN PRN Reason: Heartburn or Indigestion Dextrose/Water (Dextrose 50%) 25 gm SLOW IVP PRN PRN PRN Reason: Hypoglycemia Emollient Cream (Hydrocerin Cream) 0 gm TOP BIDPRN PRN PRN Reason: Dry Skin Last Admin: 10/25/18 10:52 Dose: 1 applic Famotidine (Pepcid) 20 mg PO BID [facility] Last Admin: 10/27/18 09:23 Dose: 20 mg Glucagon (Glucagon) 1 mg IM PRN PRN PRN Reason: Hypoglycemia Guaifenesin (Robitussin Sf) 200 mg PO Q4H PRN PRN Reason: Cough Hydralazine HCl (Apresoline) 10 mg SLOW IVP Q4H PRN PRN Reason: SBP > 180 and HR < 70 Last Admin: 10/25/18 00:00 Dose: 10 mg Hydrochlorothiazide (Hydrochlorothiazide) 25 mg PO BID [facility] Last Admin: 10/27/18 09:23 Dose: 25 mg Dextrose/Water (D5w) 1,000 mls @ 0 mls/hr IV .Q0M PRN PRN Reason: Hypoglycemia Insulin Glargine 45 units/ (Miscellaneous Medication) 0.45 mls @ 0 mls/hr SC HS [facility] Last Admin: 10/26/18 20:36 Dose: 0.45 mls Insulin Glargine 45 units/ (Miscellaneous Medication) 0.45 mls @ 0 mls/hr SC QAM [facility] Last Admin: 10/27/18 09:21 Dose: 0.45 mls Penicillin G Potassium 4 mill. (units/ Sodium Chloride) 100 mls @ 200 mls/hr IVPB Q4HR [facility] Last Admin: 10/27/18 09:22 Dose: 100 mls Insulin Human Lispro (Humalog) 0 units SC .AGGRESSIVE SLIDING PRN PRN Reason: Aggressive Correctional Scale Last Admin: 10/27/18 11:43 Dose: 6 unit Insulin Human Lispro (Humalog) 0 units SC .BEDTIME SLIDING SC PRN PRN Reason: Bedtime Correctional Scale Last Admin: 10/25/18 20:44 Dose: 3 unit Loperamide HCl (Imodium) 2 mg PO PRN PRN PRN Reason: Diarrhea/Loose Stools Loratadine (Claritin) 10 mg PO DAILYPRN PRN PRN Reason: Sinus Symptoms Metoprolol Tartrate (Lopressor) 50 mg PO BID [facility] Last Admin: 10/27/18 09:24 Dose: 50 mg Ondansetron HCl (Zofran Odt) 4 mg PO Q6H PRN PRN Reason: Nausea/Vomiting Ondansetron HCl (Zofran) 4 mg IVP Q6H PRN PRN Reason: Nausea/Vomiting Prednisolone Acetate (Econopred Plus 1% Opth Susp) 1 drop L EYE Q4HR [facility] Last Admin: 10/27/18 09:24 Dose: 1 drop Senna/Docusate Sodium (Senokot S) 2 tab PO BID PRN PRN Reason: Constipation Last Admin: 10/26/18 20:49 Dose: 2 tab Sodium Chloride ([place] Nasal [place] 0.65%) 0 ml EA NARE QIDPRN PRN PRN Reason: Nasal Congestion Throat Lozenges (Cepastat Lozenges) 1 nikki PO Q2H PRN PRN Reason: Sore Throat Zolpidem Tartrate (Ambien) 5 mg PO HSPRN PRN PRN Reason: Insomnia
[2018-10-27 13:50] LABS: Anion Gap 11 mmol/L (10-20); BUN (Urea Nitrogen) 21 mg/dL (8.4-25.7); Calc. Creatinine Clearance 68 mL/min (70-130); Calcium 9.1 mg/dL (7.8-10.44); Carbon Dioxide 30 mmol/L (23-31); Chloride 100 mmol/L (98-107); Estimated GFR-MDRD 63; Glucose 160 mg/dL (80-115); Potassium 3.6 mmol/L (3.5-5.1); Sodium 137 mmol/L (136-145)
[2018-10-27] MEDS: Atorvastatin Calcium 10 MG TAB PO SCH (20:02)
[2018-10-28] MEDS: prednisoLONE 1% Ophth Susp 5 ml Bottle L EYE SCH ×4 (00:12→12:50)
[2018-10-28] MEDS: Penicillin G Potassium 4 MILL.UNITS in Sodium Chloride 0.9% 100 ML IVPB SCH ×4 (00:12→12:50)
[2018-10-28] MEDS: HYDROcodone/Acetaminophen 5/325 mg Tablet PO PRN (04:16)
[2018-10-28] MEDS: Metoprolol Tartrate 50 MG TAB PO SCH (05:39)
--- NOTE | 2018-10-28 08:01 | PRG ---
DATE OF SERVICE: 10/27/2018 SUBJECTIVE: Mr. Ruiz now is having pain in the right eye and right side of the head. Left side is okay. No sore throat. No cough or dyspnea. No abdominal pain or diarrhea. OBJECTIVE: VITAL SIGNS: T-max 99.5. HEENT: The right eye does not have any conjunctival hyperemia and the sclera is white. The left pupil is dilated probably from mydriatic. Oral cavity normal. LUNGS: Clear. HEART: S1, S2. Regular rate. ABDOMEN: Soft, not distended or tender. LABORATORY DATA: White cell count has not been repeated. Chemistry; creatinine 1.37, GFR 63. The CSF VDRL was nonreactive. ASSESSMENT AND DISCUSSION: Type 2 diabetes, cirrhosis, portal hypertension, left eye ocular inflammation, is diagnosis of keratitis or anterior uveitis. Given corticosteroids and mydriatics, VDRL CSF negative, CSF protein abnormal. Since VDRL is not 100% sensitive for neurosyphilis, we will treat as if neurosyphilis with IM procaine penicillin 2.4 million units daily for another 10 or 11 days plus oral probenecid 500 mg p.o. 4 times daily. Job ID: [id number] [facility]
[2018-10-28] MEDS: Famotidine 20 MG TAB PO SCH (08:41)
[2018-10-28] MEDS: Aspirin Chewable 81 MG TAB PO SCH (08:41)
[2018-10-28] MEDS: Hydrochlorothiazide 25 MG TAB PO SCH (08:41)
[2018-10-28] MEDS: Insulin Glargine 45 UNITS in Pre-Filled Syringe SC SCH (08:41)
--- NOTE | 2018-10-28 09:45 | PDOC.PN ---
- Subjective Encounter Start Date: 10/28/18 Encounter Start Time: 08:50 Patient seen and examined. No new complaints. No overnight events - Objective Resuscitation Status - Order Detail: 10/23/18 12:04 Resuscitation Status Routine Resuscitation Status: FULL: Full Resuscitation MAR Reviewed: Yes Vital Signs & Weight: Vital Signs (12 hours) Temp Pulse Resp BP BP Pulse Ox 10/28/18 07:24 97.8 F 63 20 139/74 93 L 10/28/18 04:00 99.5 F 69 20 165/75 H 96 10/28/18 00:00 99.2 F 71 20 144/77 H 97 Weight Weight 198 lb I&O: 10/27/18 10/28/18 10/29/18 06:59 06:59 06:59 Intake Total 1100 1093 Balance 1100 1093 Result Diagrams: 10/24/18 04:42 10/27/18 13:12 Additional Labs: Accuchecks 10/28/18 10/27/18 10/27/18 04:08 20:00 16:39 POC Glucose 119 H 254 H 94 10/27/18 11:24 POC Glucose 224 H Phys Exam - Physical Examination Constitutional: NAD HEENT: PERRLA, moist MMs, sclera anicteric Neck: no JVD, supple Respiratory: no wheezing, no rales, no rhonchi Cardiovascular: RRR, no significant murmur, no rub Gastrointestinal: soft, non-tender, no distention, positive bowel sounds Musculoskeletal: no edema, pulses present Neurological: non-focal, normal sensation, moves all 4 limbs Lymphatic: no nodes Psychiatric: normal affect, A&O x 3 Skin: no rash, normal turgor Dx/Plan (1) CKD (chronic kidney disease) stage 3, GFR 30-59 ml/min Code(s): N18.3 - CHRONIC KIDNEY DISEASE, STAGE 3 (MODERATE) Status: Chronic (2) Diabetes type 2, uncontrolled Code(s): E11.65 - TYPE 2 DIABETES MELLITUS WITH HYPERGLYCEMIA Status: Chronic (3) Hypertension Code(s): I10 - ESSENTIAL (PRIMARY) HYPERTENSION Status: Chronic (4) Obesity (BMI 30.0-34.9) Code(s): E66.9 - OBESITY, UNSPECIFIED Status: Chronic - Plan cont current plan of care, continue antibiotics * medication reviewed as below * symptomatic treatment * see discharge jaime. Review of Systems - Review of Systems ENT: negative: Ear Pain, Ear Discharge, Nose Pain, Nose Discharge, Nose Congestion, Mouth Pain, Mouth Swelling, Throat Pain, Throat Swelling, Other Respiratory: negative: Cough, Dry, Shortness of Breath, Hemoptysis, SOB with Excertion, Pleuritic Pain, Sputum, Wheezing Cardiovascular: negative: chest pain, palpitations, orthopnea, paroxysmal nocturnal dyspnea, edema, light headedness, other Gastrointestinal: negative: Nausea, Vomiting, Abdominal Pain, Diarrhea, Constipation, Melena, Hematochezia, Other Genitourinary: negative: Dysuria, Frequency, Incontinence, Hematuria, Retention , Other Musculoskeletal: negative: Neck Pain, Shoulder Pain, Arm Pain, Back Pain, Hand Pain, Leg Pain, Foot Pain, Other Skin: negative: Rash, Lesions, Boby, Bruising, Other - Medications/Allergies Allergies/Adverse Reactions: Allergies Allergy/AdvReac Type Severity Reaction Status Date / Time No Known Allergies Allergy Verified 10/23/18 14:41 Medications: Current Medications Acetaminophen (Tylenol) 650 mg PO Q4H PRN PRN Reason: Headache/Fever/Mild Pain (1-3) Last Admin: 10/26/18 20:46 Dose: 650 mg Hydrocodone Bitart/Acetaminophen ([place] 5/325) 1 tab PO Q4H PRN PRN Reason: Moderate Pain (4-6) Last Admin: 10/28/18 04:16 Dose: 1 tab Artificial Tears (Tears Naturale) 2 drop EA EYE PRN PRN PRN Reason: Dry Eyes Aspirin (Aspirin Chewable) 81 mg PO DAILY [facility] Last Admin: 10/28/18 08:41 Dose: 81 mg Atorvastatin Calcium (Lipitor) 10 mg PO HS [facility] Last Admin: 10/27/18 20:02 Dose: 10 mg Bisacodyl (Dulcolax) 10 mg NH DAILYPRN PRN PRN Reason: Constipation Calcium Carbonate (Tums) 1,000 mg PO Q4H PRN PRN Reason: Heartburn or Indigestion Dextrose/Water (Dextrose 50%) 25 gm SLOW IVP PRN PRN PRN Reason: Hypoglycemia Emollient Cream (Hydrocerin Cream) 0 gm TOP BIDPRN PRN PRN Reason: Dry Skin Last Admin: 10/25/18 10:52 Dose: 1 applic Famotidine (Pepcid) 20 mg PO BID [facility] Last Admin: 10/28/18 08:41 Dose: 20 mg Glucagon (Glucagon) 1 mg IM PRN PRN PRN Reason: Hypoglycemia Guaifenesin (Robitussin Sf) 200 mg PO Q4H PRN PRN Reason: Cough Hydralazine HCl (Apresoline) 10 mg SLOW IVP Q4H PRN PRN Reason: SBP > 180 and HR < 70 Last Admin: 10/25/18 00:00 Dose: 10 mg Hydrochlorothiazide (Hydrochlorothiazide) 25 mg PO BID [facility] Last Admin: 10/28/18 08:41 Dose: 25 mg Dextrose/Water (D5w) 1,000 mls @ 0 mls/hr IV .Q0M PRN PRN Reason: Hypoglycemia Insulin Glargine 45 units/ (Miscellaneous Medication) 0.45 mls @ 0 mls/hr SC HS [facility] Last Admin: 10/27/18 20:02 Dose: 0.45 mls Insulin Glargine 45 units/ (Miscellaneous Medication) 0.45 mls @ 0 mls/hr SC QAM [facility] Last Admin: 10/28/18 08:41 Dose: 0.45 mls Penicillin G Potassium 4 mill. (units/ Sodium Chloride) 100 mls @ 200 mls/hr IVPB Q4HR [facility] Last Admin: 10/28/18 09:00 Dose: 100 mls Insulin Human Lispro (Humalog) 0 units SC .AGGRESSIVE SLIDING PRN PRN Reason: Aggressive Correctional Scale Last Admin: 10/27/18 11:43 Dose: 6 unit Insulin Human Lispro (Humalog) 0 units SC .BEDTIME SLIDING SC PRN PRN Reason: Bedtime Correctional Scale Last Admin: 10/27/18 20:02 Dose: 3 unit Loperamide HCl (Imodium) 2 mg PO PRN PRN PRN Reason: Diarrhea/Loose Stools Loratadine (Claritin) 10 mg PO DAILYPRN PRN PRN Reason: Sinus Symptoms Metoprolol Tartrate (Lopressor) 50 mg PO BID [facility] Last Admin: 10/28/18 05:39 Dose: 50 mg Ondansetron HCl (Zofran Odt) 4 mg PO Q6H PRN PRN Reason: Nausea/Vomiting Ondansetron HCl (Zofran) 4 mg IVP Q6H PRN PRN Reason: Nausea/Vomiting Prednisolone Acetate (Econopred Plus 1% Opth Susp) 1 drop L EYE Q4HR PRASANNA Last Admin: 10/28/18 08:45 Dose: 1 drop Senna/Docusate Sodium (Senokot S) 2 tab PO BID PRN PRN Reason: Constipation Last Admin: 10/26/18 20:49 Dose: 2 tab Sodium Chloride ([place] Nasal [place] 0.65%) 0 ml EA NARE QIDPRN PRN PRN Reason: Nasal Congestion Throat Lozenges (Cepastat Lozenges) 1 nikki PO Q2H PRN PRN Reason: Sore Throat Zolpidem Tartrate (Ambien) 5 mg PO HSPRN PRN PRN Reason: Insomnia
--- NOTE | 2018-10-28 10:42 | DIS ---
DATE OF ADMISSION: 10/25/2018 DATE OF DISCHARGE: 10/28/2018 PRIMARY CARE PHYSICIAN: Morena Hewitt MD DISCHARGE DISPOSITION: Swing bed. PRIMARY DISCHARGE DIAGNOSES: 1. Neurosyphilis. 2. Keratitis. SECONDARY DISCHARGE DIAGNOSES: Obesity with BMI 30, hypertension, diabetes type 2, and chronic kidney disease stage 3. PRIMARY PROCEDURE/OPERATION: Lumbar puncture, PICC line. RADIOLOGICAL INVESTIGATION: MRI brain, negative. CT brain and chest x-ray, normal. SIGNIFICANT LABORATORY DATA: Hemoglobin 12.7, creatinine 1.37. Urinalysis unremarkable. CSF protein 134. CSF VDRL negative. RPR high titer and syphilis IgG and IgM positive. HIV negative. DISCHARGE MEDICATIONS: The patient will have crystalline penicillin G 4,000,000 units IV per bag q.4 hourly for 10 more days, prednisolone acetate one drop left eye q.4 hourly as per make up girl, Levemir 45 units subcu b.i.d., Zocor 20 mg p.o. at bedtime, metoprolol with hydrochlorothiazide 50/25 one tablet b.i.d., and NovoLog insulin 15 units subcu a.c. CONTRAINDICATION: None. CODE STATUS: Full code. INPATIENT OIL WELL SERVICE UNIT OPERATOR: Dr. Hayden Vazquez, make up girl; Dr. Batres, ID specialist. TEST RESULTS PENDING ON DISCHARGE: None. ALLERGIES: NO KNOWN DRUG ALLERGIES. DISCHARGE PLAN: Posthospital, the patient will follow up with primary care physician, Dr. Batres and Dr. Hayden Vazquez. HOSPITAL COURSE: A 63-year-old male, who was admitted by me. Please see my HPI for further details. The patient was having headache. The patient was having facial weakness and facial pain as well as left-sided body pain. His left eye was red and erythematous and tender. He was diagnosed with keratitis as per make up girl and Dr. Batres was consulted and he ordered syphilis testing, which came back positive. We did lumbar puncture to rule out neurosyphilis and it was also consistent with neurosyphilis. We treated him with penicillin while in hospital and for complete course of therapy, we are discharging him to swing bed to complete antibiotic therapy as per Dr. Batres. PICC line is placed and the patient will finish antibiotic course there and subsequently, he will follow up with Ophthalmology as well as ID team. The patient is given prednisolone ophthalmic drops as per Dr. Hayden Vazquez. The patient has clinical improvement. He is doing much better. He is medically stable. I have seen and examined the patient at bedside today. Please see my progress note from today for further detail. Job ID: [id number]
--- NOTE | 2018-10-28 11:33 | SPC ---
SPC CVP LINE PICC INITAL >5: 10/28/2018 12:00 AM PROCEDURE: Peripherally placed 45 cm single lumen PICC line. PICC Line Placement: The left arm was prepped and draped in sterile fashion. One percent lidocaine was used for local anesthetic. Under fluoroscopic and ultrasound guidance, the basilic vein was patent and accessed with a micropunc ture needle. A guide wire was then advanced into the basilic vein. A vascular sheath was then advanced over a guide wire, and a single lumen PICC line was trimmed. The PICC line was then advanc ed into the central venous system. A final placement film demonstrates the tip of the catheter terminated in the caval-atrial junction. After confirmation of the catheter position, the catheter was sutured in place at the skin entry site . There was no immediate complication. Total fluoroscopic time was 0.3 minutes. Total exposure was 1209 mg/sq cm. IMPRESSION: Peripheral placement of a single lumen power PICC line into the left basilic vein using fluoroscopic and ultrasound guidance.
[2018-10-28] MEDS: HumaLOG 300 UNITS/3 ML VIAL SC PRN (12:50)
[2018-10-28] MEDS: Acetaminophen 325 MG TAB PO PRN (15:19)
[2018-10-28 15:23] VITALS: BP 167/84; TEMP 98.1
== END 2018-10-28 15:24 | disposition swing bed (61) | DRG 57 ==
LOC: ERS 10:32 → 2SW 11:49 → OBSVTOIN 10-25 12:10 → T4-B 10-26 07:35
PROVIDERS: ADMIT Internal Medicine; ATTEND Internal Medicine
PROC: 009U3ZX Drainage of Spinal Canal, Percutaneous Approach, Diagnostic (ICD-10-PCS; 2018-10-25)
PROC: B01B1ZZ Fluoroscopy of Spinal Cord using Low Osmolar Contrast (ICD-10-PCS; 2018-10-25)
PROC: 02HV33Z Insertion of Infusion Device into Superior Vena Cava, Percutaneous Approach (ICD-10-PCS; principal; 2018-10-28)
PROC: B5181ZA Fluoroscopy of Superior Vena Cava using Low Osmolar Contrast, Guidance (ICD-10-PCS; 2018-10-28)
DX: A52.3 Neurosyphilis, unspecified (principal); K76.6 Portal hypertension; D61.818 Other pancytopenia; I12.9 Hypertensive chronic kidney disease with stage 1 through stage 4 chronic kidney disease, or unspecified chronic kidney disease; E11.22 Type 2 diabetes mellitus with diabetic chronic kidney disease; E11.65 Type 2 diabetes mellitus with hyperglycemia; N18.3 Chronic kidney disease, stage 3 (moderate); Z79.4 Long term (current) use of insulin; E66.9 Obesity, unspecified; H16.9 Unspecified keratitis; H57.89 Other specified disorders of eye and adnexa; E87.6 Hypokalemia; E78.5 Hyperlipidemia, unspecified; H16.201 Unspecified keratoconjunctivitis, right eye; H15.9 Unspecified disorder of sclera; H16.002 Unspecified corneal ulcer, left eye; E11.21 Type 2 diabetes mellitus with diabetic nephropathy; D69.6 Thrombocytopenia, unspecified; K74.60 Unspecified cirrhosis of liver; D73.1 Hypersplenism; A51.43 Secondary syphilitic oculopathy; Z68.31 Body mass index [BMI] 31.0-31.9, adult; K75.81 Nonalcoholic steatohepatitis (NASH)
CPT/HCPCS: 36415; 36416; 36569; 62270; 70553; 80048; 80053; 80061; 81003; 81015; 82728; 82945; 83036; 84157; 84165; 85025; 86592; 86593; 86780; 87389; 89051; 94760; J0360; J1825; J2540; J3490

== ENCOUNTER 2024-06-13 12:40 | Outpatient (CLI) | payer OTHER | END 2024-06-13 12:41 | disposition home or self-care (01) | LOC: CT 12:40 | PROVIDERS: ATTEND Internal Medicine Gastroenterology | DX: R19.00 Intra-abdominal and pelvic swelling, mass and lump, unspecified site (principal); N18.9 Chronic kidney disease, unspecified; B19.20 Unspecified viral hepatitis C without hepatic coma; R79.89 Other specified abnormal findings of blood chemistry; R19.4 Change in bowel habit | CPT/HCPCS: 74176 ==